=== PATIENT | male | born 1955 | race African-American/Black ===

== ENCOUNTER 2018-05-24 15:39 | Emergency (ER) | payer MEDICAID, OTHER ==
[~2018-05-24] VITALS: Ht 180.3 cm; Wt 86.5 kg
[2018-05-24] MEDS ORDERED: LIDOCAINE HCL/PF 1% 10 MG/ML 5ML VIAL IJ ONE (17:45)
[2018-05-24 18:30] VITALS: BP 140/96
== END 2018-05-24 19:00 | disposition home or self-care (01) ==
LOC: ER 15:39
DX: S01.511A Laceration without foreign body of lip, initial encounter (principal); F10.229 Alcohol dependence with intoxication, unspecified; M48.02 Spinal stenosis, cervical region; F17.200 Nicotine dependence, unspecified, uncomplicated; Y90.9 Presence of alcohol in blood, level not specified; W01.0XXA Fall on same level from slipping, tripping and stumbling without subsequent striking against object, initial encounter; Y93.89 Activity, other specified; Y92.488 Other paved roadways as the place of occurrence of the external cause
CPT/HCPCS: 12011; 70450; 70486; 72125; 99284; J3490